=== PATIENT | male | born 1970 | race Caucasian/White ===

== ENCOUNTER 2017-04-12 16:15 | Emergency (ER) | payer OTHER ==
[~2017-04-12] VITALS: Ht 180.3 cm; Wt 80.0 kg
[2017-04-12 18:21] VITALS: BP 120/65
[2017-04-12] MEDS ORDERED: MOTRIN400 MG PO (18:22)
[2017-04-12] MEDS ORDERED: HYDROCO/APAP1 TA9 PO (18:22)
== END 2017-04-12 18:20 | disposition home or self-care (01) | DRG 563 ==
LOC: ED 16:15
PROC: 2W3RX1Z Immobilization of Left Lower Leg using Splint (ICD-10-PCS; principal; 2017-04-12)
DX: S82.832A Other fracture of upper and lower end of left fibula, initial encounter for closed fracture (principal); W18.30XA Fall on same level, unspecified, initial encounter; Y93.89 Activity, other specified; Y92.89 Other specified places as the place of occurrence of the external cause